=== PATIENT | male | born 1955 | race Caucasian/White ===

== ENCOUNTER 2021-09-27 12:48 | Inpatient (IN) ==
[2021-09-27 15:14] LABS: ABS Lymphocytes 0.5 10^3/ul (1.0-4.8); ABS Monocytes 0.2 10^3/ul (0-0.8); ABS Neutrophils 0.3 10^3/ul (1.5-7.7); Eosinophil % 0.2 %; Hematocrit 26 % (42-52); Hemoglobin 8.7 g/dL (14.0-18.0); Lymphocyte % 51.4 %; Mean Corpuscular HGB Conc 33 g/dL (31-36); Mean Corpuscular Hemoglobin 30 pg (27-31); Mean Corpuscular Volume 90 fL (80-94); Mean Platelet Volume 7.8 fL (7.4-10.4); Nucleated Red Blood Cells % 0.4; Platelet Count 49 10^3/uL (150-450); Red Cell Distribution Width 18 % (10-15)
[2021-09-27 15:28] LABS: Calcium 9.6 mg/dL (8.6-10.3); Potassium 3.2 mmol/L (3.5-5.0)
[2021-09-27 15:30] LABS: Rapid COVID-19 Molecular Undetected (Undetected)
[2021-09-27 15:34] LABS: eGFR CKD-EPI 119.4 (>60)
[2021-09-27] MEDS ORDERED: Potassium EFFERVES 25 meq TAB PO ONE (16:42)
[2021-09-27] MEDS ORDERED: Ondansetron 4 mg VIAL 2 MG/ML 2 ml VIAL IV PRN (17:52)
[2021-09-27] MEDS ORDERED: Albuterol HFA INHALER 8 gm MDI INH PRN (18:01)
[2021-09-27] MEDS ORDERED: Furosemide 20 mg/2 ml IV VIAL IV SLOW PU ONE (18:03)
[2021-09-27 18:17] LABS: Magnesium 1.6 mg/dL (1.9-2.7)
[2021-09-27] MEDS: oxyCODONE SR 10 mg TAB PO SCH (23:51)
[2021-09-28] MEDS: oxyCODONE SR 10 mg TAB PO SCH ×3 (03:02→21:01)
[2021-09-28 06:16] LABS: ABS Lymphocytes 0.5 10^3/ul (1.0-4.8); ABS Monocytes 0.2 10^3/ul (0-0.8); ABS Neutrophils 0.2 10^3/ul (1.5-7.7); Eosinophil % 0.5 %; Hematocrit 26 % (42-52); Hemoglobin 8.5 g/dL (14.0-18.0); Lymphocyte % 54.5 %; Mean Corpuscular HGB Conc 33 g/dL (31-36); Mean Corpuscular Hemoglobin 30 pg (27-31); Mean Corpuscular Volume 91 fL (80-94); Mean Platelet Volume 7.9 fL (7.4-10.4); Nucleated Red Blood Cells % 0.4; Platelet Count 46 10^3/uL (150-450); Red Blood Count 2.82 10^6 /uL (4.18-5.48); Red Cell Distribution Width 18 % (10-15); White Blood Count 0.9 10^3/uL (3.5-10.8)
[2021-09-28 06:21] LABS: INR 1.24 (0.86-1.15)
[2021-09-28 06:32] LABS: Calcium 9.3 mg/dL (8.6-10.3); Magnesium 1.7 mg/dL (1.9-2.7); Potassium 3.7 mmol/L (3.5-5.0); eGFR CKD-EPI 119.4 (>60)
[2021-09-28] MEDS: Cholecalciferol (VIT D3) 1,000 unit TAB PO SCH (08:18)
[2021-09-28] MEDS: Polyethylene Glycol 3350 17 GM PACKET PO SCH (08:21)
[2021-09-28] MEDS ORDERED: Iohexol 300 (CONTRAST) 10 ML SDV IV ONE (11:02)
[2021-09-28] MEDS ORDERED: fentaNYL 100 mcg/2 ml 50 MCG/ML VIAL ONE (14:42)
[2021-09-29 05:09] LABS: ABS Lymphocytes 0.6 10^3/ul (1.0-4.8); ABS Monocytes 0.2 10^3/ul (0-0.8); ABS Neutrophils 0.2 10^3/ul (1.5-7.7); Eosinophil % 0.4 %; Hematocrit 28 % (42-52); Hemoglobin 9.1 g/dL (14.0-18.0); Lymphocyte % 57.8 %; Mean Corpuscular HGB Conc 32 g/dL (31-36); Mean Corpuscular Hemoglobin 29 pg (27-31); Mean Corpuscular Volume 91 fL (80-94); Mean Platelet Volume 7.1 fL (7.4-10.4); Nucleated Red Blood Cells % 1.1; Platelet Count 50 10^3/uL (150-450); Red Cell Distribution Width 18 % (10-15)
[2021-09-29 05:13] LABS: Calcium 9.6 mg/dL (8.6-10.3); Potassium 3.7 mmol/L (3.5-5.0); eGFR CKD-EPI 117.7 (>60)
[2021-09-29] MEDS: oxyCODONE SR 10 mg TAB PO SCH ×2 (08:35→21:49)
[2021-09-29] MEDS: Cholecalciferol (VIT D3) 1,000 unit TAB PO SCH (08:36)
[2021-09-29] MEDS: Polyethylene Glycol 3350 17 GM PACKET PO SCH (08:36)
[2021-09-29 09:43] LABS: Magnesium 1.8 mg/dL (1.9-2.7)
[2021-09-29] MEDS: Senna TAB 8.6 mg TAB PO SCH (21:45)
[2021-09-30] MEDS: Polyethylene Glycol 3350 17 GM PACKET PO SCH (08:36)
[2021-09-30] MEDS: Cholecalciferol (VIT D3) 1,000 unit TAB PO SCH (08:36)
[2021-09-30] MEDS: oxyCODONE SR 10 mg TAB PO SCH ×2 (08:39→21:17)
[2021-09-30 14:12] LABS: ABS Lymphocytes 0.6 10^3/ul (1.0-4.8); ABS Monocytes 0.3 10^3/ul (0-0.8); ABS Neutrophils 0.4 10^3/ul (1.5-7.7); Eosinophil % 0.2 %; Hematocrit 29 % (42-52); Hemoglobin 9.5 g/dL (14.0-18.0); Lymphocyte % 46.3 %; Mean Corpuscular HGB Conc 33 g/dL (31-36); Mean Corpuscular Hemoglobin 30 pg (27-31); Mean Corpuscular Volume 91 fL (80-94); Mean Platelet Volume 7.2 fL (7.4-10.4); Nucleated Red Blood Cells % 0.2; Platelet Count 58 10^3/uL (150-450); Red Blood Count 3.17 10^6 /uL (4.18-5.48); Red Cell Distribution Width 18 % (10-15); White Blood Count 1.4 10^3/uL (3.5-10.8)
[2021-09-30 14:26] LABS: Calcium 9.1 mg/dL (8.6-10.3); Magnesium 1.6 mg/dL (1.9-2.7); Potassium 3.7 mmol/L (3.5-5.0); eGFR CKD-EPI 121.3 (>60)
[2021-09-30] MEDS ORDERED: Magnesium Sulfate 2 gm BAG 2 GM/50 ML BAG IVPB ONE (18:25)
[2021-09-30] MEDS: Senna TAB 8.6 mg TAB PO SCH (21:21)
[2021-09-30] MEDS ORDERED: Saline NASAL SPRAY 0.65% BTL BOTH NARES PRN (22:35)
[2021-10-01 05:28] LABS: ABS Lymphocytes 0.6 10^3/ul (1.0-4.8); ABS Monocytes 0.2 10^3/ul (0-0.8); ABS Neutrophils 0.5 10^3/ul (1.5-7.7); Eosinophil % 0.3 %; Hematocrit 27 % (42-52); Hemoglobin 9.1 g/dL (14.0-18.0); Lymphocyte % 43.2 %; Mean Corpuscular HGB Conc 33 g/dL (31-36); Mean Corpuscular Hemoglobin 30 pg (27-31); Mean Corpuscular Volume 92 fL (80-94); Mean Platelet Volume 7.6 fL (7.4-10.4); Nucleated Red Blood Cells % 0.4; Platelet Count 56 10^3/uL (150-450); Red Blood Count 2.99 10^6 /uL (4.18-5.48); Red Cell Distribution Width 19 % (10-15); White Blood Count 1.3 10^3/uL (3.5-10.8)
[2021-10-01 05:29] LABS: Calcium 9.5 mg/dL (8.6-10.3); Magnesium 2.1 mg/dL (1.9-2.7); Potassium 4.1 mmol/L (3.5-5.0); eGFR CKD-EPI 116.1 (>60)
[2021-10-01] MEDS: Cholecalciferol (VIT D3) 1,000 unit TAB PO SCH (08:24)
[2021-10-01] MEDS: Polyethylene Glycol 3350 17 GM PACKET PO SCH (08:25)
[2021-10-01] MEDS: oxyCODONE SR 10 mg TAB PO SCH ×2 (08:25→21:15)
[2021-10-01 11:06] LABS: INR 1.33 (0.86-1.15)
[2021-10-01] MEDS: Senna TAB 8.6 mg TAB PO SCH ×2 (21:15→21:19)
[2021-10-02 06:12] LABS: Calcium 9.2 mg/dL (8.6-10.3); eGFR CKD-EPI 119.4 (>60)
[2021-10-02 06:15] LABS: ABS Lymphocytes 0.5 10^3/ul (1.0-4.8); ABS Monocytes 0.2 10^3/ul (0-0.8); ABS Neutrophils 0.6 10^3/ul (1.5-7.7); Eosinophil % 0.5 %; Hematocrit 28 % (42-52); Lymphocyte % 38.6 %; Mean Corpuscular HGB Conc 33 g/dL (31-36); Mean Corpuscular Hemoglobin 30 pg (27-31); Mean Corpuscular Volume 91 fL (80-94); Mean Platelet Volume 7.1 fL (7.4-10.4); Nucleated Red Blood Cells % 0.3; Platelet Count 56 10^3/uL (150-450); Red Blood Count 3.02 10^6 /uL (4.18-5.48); Red Cell Distribution Width 20 % (10-15); White Blood Count 1.3 10^3/uL (3.5-10.8)
[2021-10-02] MEDS: Cholecalciferol (VIT D3) 1,000 unit TAB PO SCH (07:32)
[2021-10-02] MEDS: Polyethylene Glycol 3350 17 GM PACKET PO SCH (07:33)
[2021-10-02] MEDS: oxyCODONE SR 10 mg TAB PO SCH (09:09)
[2021-10-02] MEDS ORDERED: fentaNYL 100 mcg/2 ml 50 MCG/ML VIAL ONE (12:04)
[2021-10-02 15:44] VITALS: BP 117/91
== END 2021-10-02 18:30 | disposition home or self-care (01) | DRG 180 ==
LOC: ED 12:48 → EDHOLD 12:48 → MEDTELE 22:30 → SUATTDRO 09-28 16:00
PROVIDERS: ADMIT Internal Medicine; ATTEND Hospitalist